=== PATIENT | female | born 1970 ===

== ENCOUNTER → 2025-04-13 | Outpatient (CLI) | payer OTHER ==
--- NOTE | 2025-04-13 11:27 | CT ---
EXAMINATION TYPE: CT foot LT wo con DATE OF EXAM: 04/13/2025 10:56 AM COMPARISON: None CLINICAL INDICATION: Female, 54 years old with history of S93.325A LEFT FOOT DISLOCATION OF TARSOMETA TARSAL; pain TECHNIQUE: CT of the left foot without IV contrast. Coronal and sagittal reconstructions performed. 3 -D reconstruction was created on a separate workstation. CT DLP: 294.20 mGycm, Automated exposure control for dose reduction was used. FINDINGS: Multiple intra-articular fractures on the base of the first through fourth metatarsals tarsals. Fract ure of the base of the third metatarsal is comminuted with trace 2 mm of articular surface step-off, sagittal image 52. Tibiotalar joint and subtalar joints are aligned. Normal variant os trigonum. Small delineation to th e Achilles tendon. No dotty midfoot malalignment or significant displacement is seen. IMPRESSION: 1. Multiple intra-articular fractures involving the base of the first through fourth metatarsals kayce g the Lisfranc ligament complex. The fracture at the base of the third metatarsal is comminuted with a 2 mm of articular surface step-off. 2. No significant displacement of fracture fragments or malalignment seen. [facility], , 04/13/2025 11:25 AM
== END | disposition home or self-care (01) ==
LOC: RADCTMAIN 10:27
PROVIDERS: ATTEND Podiatrist
DX: S93.325A Dislocation of tarsometatarsal joint of left foot, initial encounter (principal); S92.342A Displaced fracture of fourth metatarsal bone, left foot, initial encounter for closed fracture; X58.XXXA Exposure to other specified factors, initial encounter